=== PATIENT | male | born 1945 | race Caucasian/White ===

== ENCOUNTER 2023-08-20 14:57 | Outpatient (RCR) | payer MEDICARE, SELFPAY ==
--- NOTE | 2023-08-20 16:04 | PT.OPEX ---
[facility] Eval Start: 08/20/23 12:59 Freq: Status: Active Protocol: Document 08/20/23 15:52 JEET (Rec: 08/20/23 16:03 JEET [id number]) E-signed By Anne Raza, PT Physical Therapy Outpatient Evaluation Insurance Information Recert Due Date 11/14/23 Insurance Name Medicare B Medical Diagnosis Right hip OA Pre-op R MAMADOU DOS: 08/27/23 Treating Diagnosis Right hip pain, limited hip ROM, antalgic gait, muscle weakness Referring MD Unger Subjective Subjective Ashwin reports chronic right hip pain since 2003 that impacts his ability to walk and stand for long period of time or stand following sitting for an extended period of time. Previously had L MAMADOU in 2011 ( anterolateral approach). Currently not ambulating with AD however significantly altered gait and balance d/t pain. No falls to report. Son lives with him in a multilevel home. Patients bedroom is on main level and laundry in the basement however son is able to help with this initially. He has 2 steps to enter the house. No railings however step is appropriate for a 2WW according to patient. 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 Standing for 5 hours at a time. Plans to take 1-2 weeks off from work. He plans to follow up with OP PT in [place] however has not scheduled this yet. PMH: L TKA 2011, HTN, smoker, numbness bottom of both feet X-rays show end-stage bone-on- bone right hip degenerative change with deformity of the femoral head. Osteophytic spurring is significant. Sclerosis is significant. No visible cysts. Calcification within the femoral arteries. 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 Session focused on education of anterior hip precautions, post-operative fall prevention precautions, transfers, gait with AD, stair negotiation, post-operative exercises. He is able to verbalize precautions and demonstrated independence with exercises, gait and stairs. He is appropriate to proceed with surgery at this time. Primary Functional Limitations Walking, standing, sitting, bending, squatting Plan of Care Rehabilitation Potential Good Physical Therapy Goals By end of session today, patient will...All goals MET Demonstrate appropriate gait pattern with FWW to utilize post surgery for optimal safety when ambulating Demonstrate ability to negotiate stairs using appropriate stair pattern post surgery for optimal safety when at home and in community Verbalize understanding of most appropriate home set up including needed equipment for optimal safety and recovery post surgery Be independent in HEP program to show ability to perform appropriate exercises post surgery Treatment Plan/Direct Interventions Gait Training,Ice/Cold/ Vasopneumatic,Joint Mobilization,Manual Therapy, Neuromuscular Re-ed,Self-Care/ Home Management,Therapeutic Activities,Therapeutic Exercises Frequency/Duration Pre-op appointment only Patient Will Be Discharged From Therapy Completion of LTG(s), Independent w/HEP, Independently Progressing Evaluation Billing Untimed Code Treatment Minutes 25 Complexity Low Certification Information Provider Signature Required Yes Provider Signature Shows Agreement With POC & Medical Necessity Physician NPI Number Write NPI# Here Physician Comment/Change : Physician Signature & Date Requested Please Sign/Date Here
== END 2023-12-18 23:59 | disposition home or self-care (01) ==
PROVIDERS: PCP Family Medicine; Visit Provider Orthopaedic Surgery
DX: M16.11 Unilateral primary osteoarthritis, right hip (principal); Z96.641 Presence of right artificial hip joint; M25.551 Pain in right hip; Z74.09 Other reduced mobility; R26.9 Unspecified abnormalities of gait and mobility; M62.81 Muscle weakness (generalized); Z51.89 Encounter for other specified aftercare
CPT/HCPCS: 97161; 97535

== ENCOUNTER 2023-08-27 07:26 | Day surgery (SDC) | payer MEDICARE, SELFPAY ==
--- NOTE | 2023-08-20 16:33 | PC.SOCIAL ---
Social work : At request of Orthopedic Clinic nurse, called pt's son, Jf, to answer questions about transitional care stay after surgery. Son states he is no longer interested in this because his father is refusing this plan. Shared with son that pt would not meet Medicare criteria for insurance coverage if things went well during and after surgery and that private pay costs at a transitional care facility are around $650/day. Son was appreciative of information provided and is aware of how to reach social sciences research scientist if he has additional questions about discharge plan or community resources.
[2023-08-27] VITALS (30 sets, daily range): BP systolic 107–201; BP diastolic 70–125; PULSE 50–97; RESP 12–20; TEMP 35.8–36.8; O2SAT 94–100; BMI 26.4; BMI 24.0
[2023-08-27] MEDS: ACETAMINOPHEN 500 MG TABLET 1000 MG PO ×3 (08:00→22:30)
[2023-08-27] MEDS: CELECOXIB 200 MG CAPSULE PO (08:00)
[2023-08-27] MEDS: OXYCODONE (CR) 10 MG TAB.ER.12H PO (08:00)
[2023-08-27] MEDS: LACTATED RINGERS 1000 ML 1,000 ML 100 ML IV ×2 (08:19→11:52)
[2023-08-27] MEDS: SODIUM CHLORIDE 0.9 % (FLUSH) 10 ML SYRINGE IVF (08:19)
[2023-08-27] MEDS: fentaNYL 100 MCG/2 ML inj IVP (09:56)
[2023-08-27] MEDS: MIDAZOLAM HCL 1 MG/ML inj IVP (09:56)
--- NOTE | 2023-08-27 09:57 | SUR.PREOP ---
TIME?OUT:955? PT/RN/MDA?VERIFICATION?OF?SURGICAL?SITE,?PROCEDURE,?AND?CONSENT OBTAINED?PRIOR?TO?INVASIVE?PROCEDURE.
--- NOTE | 2023-08-27 10:00 | CRLHL7_ITS ---
For Patients: As a result of the Cures Act, medical imaging exams and procedure reports are released immediately into your electronic medical record. You may view this report before your referring provider. If you have questions, please contact your health care provider. Indication: Hip replacement surgery Technique: AP hip fluoroscopic images. Fluoroscopy time 59.6 seconds. Findings/Impression: Hardware from a right total hip arthroplasty is in satisfactory position. Dictated by Ammon Rivera MD @ 08/28/2023 7:28:20 AM (Electronically Signed)
--- NOTE | 2023-08-27 10:21 | P.NB_ITS ---
Nerve Block Nerve Block Time Seen by Provider: 10:02 Date Seen: 08/27/23 Type of block requested by surgeon for post-operative analgesia: OSCAR/LFCN Side: right Time out performed: Yes Verification of patient name: Yes Verification of date of : Yes Site marking: site marked Name of person performing procedure: Reece Continuous monitoring Was continuous monitoring of O2 sat, B/P, nurse monitoring, recorded every 15 minutes?: Yes Procedure Checklist: sterile prep, needles and gloves Ultrasound guided. Images saved: Yes Medications given in 5ml increments after negative aspiration: Ropivicaine %: 0.5 mL: 30 Needle gauge: 20 Decadron (mg): 10 Precedex (mcg): 25 Patient tolerated procedure well: Yes Additional comments: Needle noted below psoas tendon needle noted adjacent to LFCN Block Charges Block Charge (with Pro Fee): Other Periph Nerve Block Use of Ultrasound Machine for Block: Yes- US Guidance/pain block
--- NOTE | 2023-08-27 10:22 | W.ANESCHARGE ---
Anesthesia Charges Start Date/Time Anesthesia Start Date: 08/27/23 Anesthesia Start Time: 10:50 Stop Date/Time Anesthesia Stop Date: 08/27/23 Anesthesia Stop Time: 13:31 Summary Extremes of Age - Over 70 or under 1: MDA
[2023-08-27] MEDS: CEFAZOLIN 2 GM INJ IVP (10:55)
[2023-08-27] MEDS: TRANEXAMIC ACID 100 MG/ML INJ 1000 MG IV (10:55)
--- NOTE | 2023-08-27 12:44 | CRLHL7_ITS ---
For Patients: As a result of the Cures Act, medical imaging exams and procedure reports are released immediately into your electronic medical record. You may view this report before your referring provider. If you have questions, please contact your health care provider. Indication: TOTAL RT HIP REPLACEMENT POST OP Technique: AP hip centered pelvis and lateral view right hip Findings/Impression: Hardware from a right total hip arthroplasty is in satisfactory position. Bone alignment is normal. No sign of acute fracture. Postop changes are within normal limits. Dictated by Ammon Rivera MD @ 08/28/2023 7:27:44 AM (Electronically Signed)
--- NOTE | 2023-08-27 12:47 | P.ORPRC_ITS ---
Procedure Note Date of procedure: 08/27/23 Procedure: PREOPERATIVE DIAGNOSIS: Right hip osteoarthritis POSTOPERATIVE DIAGNOSIS: Right hip osteoarthritis NAME OF OPERATION: Right total hip arthroplasty SURGEON: Saurav Unger MD COLD STRIP FEEDER: Matilde Pedraza PA-C, ROSS Rodríguez IMPLANTS: 1. [employer] [place] # 58 sector ingrowth cup 2. 36 x 58 +4 neutral polyethylene 3. Actis # 9 standard collared ingrowth stem 4. 36 + -2 cobalt chrome femoral head ANESTHESIA: General ESTIMATED BLOOD LOSS: 400 cc COMPLICATIONS: None SPECIMENS: None DRAINS: None PREOPERATIVE ANTIBIOTICS: Ancef 2 grams INDICATIONS: The patient is a 78-year-old with a longstanding history of severe, unrelenting right hip pain secondary to end-stage right hip osteoarthritis. Despite appropriate nonoperative management, including activity modification, use of an assist device, anti-inflammatories, [id number] pain medication, physical therapy and injections, they continue to have pain and disability. Operative intervention was offered. The risks, benefits and expected outcomes were discussed in detail. These included but were not limited to: Infection, bleeding, injury to blood vessel or nerve, venous thromboembolism. All questions were answered to their satisfaction. Use of an anatomic pathology assistant was necessary throughout the case for patient positioning and safety, soft tissue retraction and closure. PROCEDURE: The patient was placed supine on the [place] table. General anesthesia was administered. The anatomic pathology assistant made sure the patient was properly positioned. The right hip was prepped and draped in the usual sterile fashion. The image intensifier was brought in for a perfect AP pelvis and a perfect double tear drop AP view of each hip which were used for intraoperative templating with our fluoroscopic guide. An oblique incision was made 3 cm distal and 3 cm lateral to the anterior superior iliac spine. The anatomic pathology assistant retracted the soft tissues to protect them. Subcutaneous dissection was taken with electrocautery to the superficial fascia. The fascia was divided in line with the incision. Blunt dissection was carried medially to the tensor fascia hardik and sartorius interval. Deep dissection was carried with electrocautery. The circumflex vessels were cauterized and divided. The capsule was exposed and then divided in a T- fashion, tagged with #1 Ethibond sutures. Retractors were placed in the joint, held by the anatomic pathology assistant. The corkscrew was placed in the femoral head. The neck cut was made in the subcapital region. We made a second neck cut more distal. The napkin ring of bone was removed. The femoral head was removed intact. Acetabular retractors were placed, held by the anatomic pathology assistant. The labrum was sharply debrided. The capsule was released. The 43 mm reamer was used to the true medial wall. We then enlarged in 2 mm increments using the image intensifier for our reamer placement. We impacted the cup which had excellent purchase. For supplemental fixation we placed a 6.5 mm x 45 mm screw in the superior aspect of the cup, into the ilium. This had excellent purchase. Its placement was confirmed with the image intensifier in multiple planes. We placed the polyethylene. Attention was then turned to the proximal femur. The limb was placed in 140 degrees of external rotation, maximum extension and adduction. A significant amount of time was spent releasing the capsule to allow us to deliver the femur into the wound and complete the femoral side safely. Retractors were held by the anatomic pathology assistant throughout the femoral preparation. The jukebox checker and canal finder were used. Broaches were used to a stable size. The calcar reamer was used. Trial components were placed. The hip was reduced and was found to be stable with appropriate soft tissue tension. Length and offset had been nicely restored using the image intensifier and our fluoroscopic guide. Trial components were removed. The stem was impacted. We placed the femoral head. Again, the hip was reduced and was found to be stable with appropriate soft tissue tension. Length and offset had been nicely restored. The anatomic pathology assistant did a three minute dilute Betadine solution soak. The anatomic pathology assistant irrigated the wound with 3 liters of normal saline via pulse lavage. The anatomic pathology assistant repaired the anterior capsule with a #1 Vicryl and our previously placed Ethibond sutures. The anatomic pathology assistant closed the fascia over the tensor fascia hardik with a #1 PDO Stratafix, subcutaneous tissues with 2-0 Vicryl, skin with a running 3-0 Stratafix and glue. A dry dressing was applied by the anatomic pathology assistant. Sponge and needle counts were correct x 2. The patient tolerated the procedure well; there were no apparent complications. They were awakened and extubated in the operating room, sent to the Post-Anesthesia Care Unit in satisfactory condition. PLAN: 1. The patient will be mobilized with physical therapy, weight-bearing as tolerates 2. Xarelto x 5 days then aspirin x 30 days will be used for DVT prophylaxis 3. The patient will be discharged once medically appropriate
--- NOTE | 2023-08-27 13:34 | W.ANESCHARGE ---
Anesthesia Charges Start Date/Time Anesthesia Start Date: 08/27/23 Anesthesia Start Time: 10:50 Stop Date/Time Anesthesia Stop Date: 08/27/23 Anesthesia Stop Time: 13:31
[2023-08-27] MEDS: fentaNYL 100 MCG/2 ML inj 50 MCG IVP (13:51)
--- NOTE | 2023-08-27 14:28 | SUR.PHASEI ---
patient met discharge criteria per anesthesia
--- NOTE | 2023-08-27 15:45 | P.IMCN_ITS ---
Date of Consult Patient: Donal Patient Consult date: 08/27/23 Requesting Physician: Orthopedics Primary Care Provider: Eliezer Leroy MD Consult Narrative Narrative: Bernardo Potts is a 78 year old male seen in consultation for medical problems following right hip arthroplasty. Procedure was performed by Dr. Unger today. There were no complications. Estimated blood loss of 400 mL. He requests consultation for management of medical problems. Postoperatively patient reports feeling fine. He is not having significant pain. Note chills, did dyspnea, nausea. Preoperatively he reports feeling well with no recent illness or injury. Preop physical did not identify any significant perioperative concerns. Previous surgical history is only a left hip arthroplasty 10 years ago without complications. Review of Systems Narrative: Patient reports doing well. PFSH PFS Medical History (Updated 08/27/23 @ 15:55 by Eran Yeung MD) Smoking ?F17.200 - Nicotine dependence, unspecified, uncomplicated (ICD-10) COPD (chronic obstructive pulmonary disease) ?J44.9 - Chronic obstructive pulmonary disease, unspecified (ICD-10) Hypercholesteremia ?E78.00 - Pure hypercholesterolemia, unspecified (ICD-10) Depression ?F32.A - Depression, unspecified (ICD-10) Hypertension ?I10 - Essential (primary) hypertension (ICD-10) Surgical History (Updated 08/27/23 @ 15:55 by Eran Yeung MD) S/P total right hip arthroplasty ?Z96.641 - Presence of right artificial hip joint (ICD-10) History of left hip replacement ?Z96.642 - Presence of left artificial hip joint (ICD-10) Family History (Updated 08/27/23 @ 15:50 by Eran Yeung MD) Mother Heart disease Father Stroke Social History (Updated 08/27/23 @ 15:52 by Eran Yeung MD) Narrative: He lives with his son in [place]. He lives in a home that does have a few steps. He smokes almost a pack cigarettes a day for over 40 years. He rarely drinks alcohol. What is your current living situation?: I presently have a place to live Problems where you live: no known problems In the past 12 months, utilities in danger of being shut off: no In past 12 months, lack of transportation kept you from medical appts, meetings, work, or getting things needed for daily living: no In the past 12 mos, have been you worried that your food would run out before you had money to buy more?: never true In the past 12 mos, the food you bought just didn't last and you didn't have money to buy more?: never true Highest level of school completed/degree received: 10th grade Smoking Status: Current every day smoker What tobacco products do you use: cigarettes Smoking packs per day: 1 Smoking cigarettes per day: 20.0 Years smoked: 40 Smoking pack-years: 40.00 Do you use any of these nicotine containing products: None Second hand tobacco smoke exposure: Yes How often do you have a drink containing alcohol: monthly or less Alcohol type: beer How many standard drinks containing alcohol do you have on a typical day: 1 or 2 How often do you have six or more drinks on one occasion: Never AUDIT-C Alcohol total score: 1 Non-prescribed substance use: denies use Caffeine: Yes (coffee/pop) How often does anyone, including family, friends and others, physically hurt you : never How often does anyone, including family, friends and others, insult or talk down to you: never How often does anyone, including family, friends and others, threaten you with harm: never How often does anyone, including family, friends and others, scream or curse at you: never service: No Meds Home Medications and Allergies Home Medications ?Medication ?Instructions ?Recorded ?Confirmed ?Type metoprolol succinate 50 mg 50 mg PO DAILY 07/03/23 07/03/23 History tablet,extended release 24 hr simvastatin 40 mg tablet 40 mg PO QHS 08/20/23 History acetaminophen 325 mg capsule 650 mg PO Q12H PRN 08/26/23 08/26/23 History Allergies Allergy/AdvReac Type Severity Reaction Status Date / Time No Known Drug Allergies Allergy Verified 07/03/23 15:19 Exam Narrative: Exam Narrative: He is alert and appears in no distress. Eyes normal. Oropharynx edentulous. Neck is supple without mass or adenopathy. Respirations are clear to auscultation with diminished breath sounds throughout. No wheezing. Cardiovascular: S1, S2, regular rate and rhythm. Abdomen: Bowel sounds active. Abdomen is soft without tenderness or mass. External genitalia normal. Right hip is without erythema or significant drainage on the dressing. Distally he has intact pulses and intact strength in his feet and ankles. Const: Vital Signs, click to edit/add: Vital Signs - 24 hr 08/27/23 07:48 08/27/23 09:58 08/27/23 10:00 Temperature 98.3 F Pulse Rate 60 61 60 Respiratory Rate 16 16 16 Blood Pressure 143/81 H 138/81 108/78 Pulse Oximetry 97 99 98 Oxygen Delivery Me thod Room Air Nasal Cannula Nasal Cannula Oxygen Flow Rate 2 2 08/27/23 10:05 08/27/23 10:15 08/27/23 10:20 Temperature Pulse Rate 63 59 L 58 L Respiratory Rate 16 16 16 Blood Pressure 109/73 116/71 107/70 Pulse Oximetry 94 94 97 Oxygen Delivery Me thod Nasal Cannula Nasal Cannula Nasal Cannula Oxygen Flow Rate 2 2 2 08/27/23 13:28 08/27/23 13:30 08/27/23 13:35 Temperature 97.6 F 97.6 F 97.6 F Pulse Rate 54 L 54 L 50 L Respiratory Rate 14 14 14 Blood Pressure 167/97 H 167/97 H 182/99 H Pulse Oximetry 100 99 97 Oxygen Delivery Me thod OxyMask OxyMask OxyMask Oxygen Flow Rate 6 6 6 08/27/23 13:40 08/27/23 13:45 08/27/23 13:50 Temperature 97.6 F 97.6 F 97.6 F Pulse Rate 56 L 56 L 56 L Respiratory Rate 14 12 13 Blood Pressure 170/87 H 111/88 115/85 Pulse Oximetry 97 95 95 Oxygen Delivery Me thod Room Air Room Air Room Air Oxygen Flow Rate 08/27/23 13:55 08/27/23 14:00 08/27/23 14:05 Temperature 97.3 F L 97.3 F L 97.3 F L Pulse Rate 56 L 65 58 L Respiratory Rate 14 14 15 Blood Pressure 171/123 H 157/115 H 201/125 H Pulse Oximetry 95 95 95 Oxygen Delivery Me thod Room Air Room Air Room Air Oxygen Flow Rate 08/27/23 14:10 Temperature 97.3 F L Pulse Rate 64 Respiratory Rate 14 Blood Pressure 162/114 H Pulse Oximetry 95 Oxygen Delivery Me thod Room Air Oxygen Flow Rate Documenting provider has reviewed patient's vital signs: yes Assessment and Plan Assessment and plan (1) S/P total right hip arthroplasty: Problem comment: Dr. Unger, 08/27/2023, no complications, Status: Acute (2) Smoking: Problem comment: Recommend abstinence. Nicotine patch offered but currently declined. Status: Acute Plan Patient is admitted to the hospital for postoperative care following hip arthroplasty including pain management and therapy. Manage medical problems as well. Anticipate discharge to home tomorrow if doing well. Total Time Spent Total Time Spent: 35 minutes
[2023-08-27] MEDS: LACTATED RINGERS 1000 ML 1,000 ML 75 ML IV (16:23)
[2023-08-27] MEDS: CEFAZOLIN 2 GM in 0.9 % SODIUM CHLORIDE Mini-bag 100 ML IVPB (18:52)
[2023-08-27] MEDS: OXYCODONE 5 MG TABLET PO (19:04)
[2023-08-27] MEDS: SIMVASTATIN 40 MG TABLET PO (22:30)
[2023-08-27] MEDS: SENNOSIDES 1 TAB TABLET 2 TAB PO (22:30)
[2023-08-28 03:00] VITALS: BP 118/70; PULSE 83; TEMP 36.7; O2SAT 94
[2023-08-28] MEDS: CEFAZOLIN 2 GM in 0.9 % SODIUM CHLORIDE Mini-bag 100 ML IVPB (03:12)
[2023-08-28] MEDS: ACETAMINOPHEN 500 MG TABLET 1000 MG PO ×2 (03:36→10:41)
[2023-08-28] MEDS: OXYCODONE 5 MG TABLET PO ×2 (03:37→08:09)
[2023-08-28 07:25] LABS: Potassium* 4.3 mmol/L (3.6-5.1); Sodium* 136 mmol/L (135-149)
[2023-08-28 07:28] LABS: Creatinine* 0.7 mg/dL (0.5-1.5); Estimated Glomerular Filt Rate 95 ml/min
[2023-08-28 07:29] LABS: Blood Urea Nitrogen* 20 mg/dL (7-30)
[2023-08-28 07:40] VITALS: BP 127/82; PULSE 81; RESP 18; TEMP 37.1; O2SAT 93
[2023-08-28 07:53] VITALS: RESP 18; O2SAT 93
--- NOTE | 2023-08-28 08:01 | PM.ORPN ---
Subjective Subjective Time Seen by Provider: 07:15 Date Seen: 08/28/23 Principal diagnosis: Status post right hip replacement Interval history: Ashwin is comfortable this morning. He has been up to the restroom, ambulated about his room. He will be discharging today to home. He is looking forward to getting back to work. Ortho Exam Narrative Exam Narrative: Alert and oriented x3. Patient is in no acute distress. Converses without labored breathing. Hearing is grossly intact. Ambulates with a walker. Examination of the right lower extremity shows the dressing is intact. No erythema or warmth or sign of infection. Minimal edema. He is able to flex his knee about 10? in his bed this morning. He stated he was able to do this easier yesterday. With quad strength testing 5/5. Tingling and some numbness in his feet, however he states this was there previously. Otherwise CMS intact right lower extremity. Calves are soft and nontender. Const Vital Signs, click to edit/add: Vital Signs - 24 hr 08/27/23 09:58 08/27/23 10:00 08/27/23 10:05 Temperature Pulse Rate 61 60 63 Pulse Rate [Right Pulse Oximeter] Respiratory Rate 16 16 16 Blood Pressure 138/81 108/78 109/73 Blood Pressure [Left Arm] Pulse Oximetry 99 98 94 Oxygen Delivery Method Nasal Cannula Nasal Cannula Nasal Cannula Oxygen Flow Rate 2 2 2 08/27/23 10:15 08/27/23 10:20 08/27/23 13:28 Temperature 97.6 F Pulse Rate 59 L 58 L 54 L Pulse Rate [Right Pulse Oximeter] Respiratory Rate 16 16 14 Blood Pressure 116/71 107/70 167/97 H Blood Pressure [Left Arm] Pulse Oximetry 94 97 100 Oxygen Delivery Method Nasal Cannula Nasal Cannula OxyMask Oxygen Flow Rate 2 2 6 08/27/23 13:30 08/27/23 13:35 08/27/23 13:40 Temperature 97.6 F 97.6 F 97.6 F Pulse Rate 54 L 50 L 56 L Pulse Rate [Right Pulse Oximeter] Respiratory Rate 14 14 14 Blood Pressure 167/97 H 182/99 H 170/87 H Blood Pressure [Left Arm] Pulse Oximetry 99 97 97 Oxygen Delivery Method OxyMask OxyMask Room Air Oxygen Flow Rate 6 6 08/27/23 13:45 08/27/23 13:50 08/27/23 13:55 Temperature 97.6 F 97.6 F 97.3 F L Pulse Rate 56 L 56 L 56 L Pulse Rate [Right Pulse Oximeter] Respiratory Rate 12 13 14 Blood Pressure 111/88 115/85 171/123 H Blood Pressure [Left Arm] Pulse Oximetry 95 95 95 Oxygen Delivery Method Room Air Room Air Room Air Oxygen Flow Rate 08/27/23 14:00 08/27/23 14:05 08/27/23 14:10 Temperature 97.3 F L 97.3 F L 97.3 F L Pulse Rate 65 58 L 64 Pulse Rate [Right Pulse Oximeter] Respiratory Rate 14 15 14 Blood Pressure 157/115 H 201/125 H 162/114 H Blood Pressure [Left Arm] Pulse Oximetry 95 95 95 Oxygen Delivery Method Room Air Room Air Room Air Oxygen Flow Rate 08/27/23 14:18 08/27/23 14:30 08/27/23 14:37 Temperature 96.9 F L 96.5 F L Pulse Rate 56 L 62 Pulse Rate [Right Pulse Oximeter] Respiratory Rate 20 18 Blood Pressure 139/108 H 149/94 H Blood Pressure [Left Arm] Pulse Oximetry 96 96 96 Oxygen Delivery Method Room Air Room Air Room Air Oxygen Flow Rate 08/27/23 14:45 08/27/23 15:00 08/27/23 15:00 Temperature 96.9 F L Pulse Rate 66 Pulse Rate [Right Pulse Oximeter] Respiratory Rate 18 14 16 Blood Pressure 164/100 H Blood Pressure [Left Arm] Pulse Oximetry 97 96 Oxygen Delivery Method Room Air Room Air Oxygen Flow Rate 08/27/23 15:00 08/27/23 15:15 08/27/23 15:45 Temperature 97.7 F 97.3 F L Pulse Rate 64 75 76 Pulse Rate [Right Pulse Oximeter] Respiratory Rate 20 20 18 Blood Pressure 160/88 H 158/88 H 136/86 Blood Pressure [Left Arm] Pulse Oximetry 97 96 97 Oxygen Delivery Method Room Air Room Air Room Air Oxygen Flow Rate 08/27/23 16:15 08/27/23 17:00 08/27/23 18:00 Temperature 97.7 F 97.8 F Pulse Rate 79 61 97 Pulse Rate [Right Pulse Oximeter] Respiratory Rate 18 18 16 Blood Pressure 142/102 H 132/85 135/70 Blood Pressure [Left Arm] Pulse Oximetry 96 97 97 Oxygen Delivery Method Room Air Room Air Room Air Oxygen Flow Rate 08/27/23 19:00 08/27/23 22:33 08/27/23 22:35 Temperature 98.1 F 97.5 F L Pulse Rate 97 Pulse Rate [Right Pulse Oximeter] 67 Respiratory Rate 16 18 18 Blood Pressure 113/84 Blood Pressure [Left Arm] 129/77 Pulse Oximetry 96 97 97 Oxygen Delivery Method Room Air Room Air Room Air Oxygen Flow Rate 08/28/23 03:00 08/28/23 07:40 08/28/23 07:53 Temperature 98.0 F 98.7 F Pulse Rate Pulse Rate [Right Pulse Oximeter] 83 81 Respiratory Rate 18 18 Blood Pressure Blood Pressure [Left Arm] 118/70 127/82 Pulse Oximetry 94 93 93 Oxygen Delivery Method Room Air Room Air Room Air Oxygen Flow Rate 0 Assessment and Plan Assessment and plan (1) S/P total right hip arthroplasty: Problem details: Dr. Unger, 08/27/2023 Status: Acute Assessment and Plan: Plan for discharge is today, and when he meets discharge criteria. DVT prophylaxis upon discharge Xarelto 10 mg daily for 5 days, then aspirin 81 mg b.i.d. for 30 days. Remove dressing 1 week. Observe wound and phone Orthopedics with any questions or concerns Use Ice on operative hip unrestricted. Return to clinic in 1 week with PA for a wound check Return to clinic in 6 weeks with surgeon Minimize narcotic use. Wean off and discontinue soon as possible. Activities as tolerated. No strenuous activity. Attend outpt PT. He states he is unsure if he has had outpatient physical therapy appointments scheduled. I have asked Anne, my nurse to check into this and speak with Ashwin.
[2023-08-28 08:03] LABS: Basophils Percent Auto 0.1 % (0.0-3.0); Hematocrit 33.9 % (37.0-53.0); Hemoglobin* 10.9 gm/dL (13.5-17.5); Immature Granulocytes Pct Auto 0.4 %; Lymphocytes Percent Auto 8.6 % (20-44); Mean Corpuscular HGB Conc 32 gm/dL (32-36); Mean Corpuscular Hemoglobin 31 pg (26-34); Mean Corpuscular Volume 97 fL (80-100); Neutrophils Percent Auto 79.9 % (42.0-72.0); Platelet Count* 141 K/uL (140-440); RDW Coefficient of Variation % 14.8 % (11.5-15.5); White Blood Count* 13.31 K/uL (4.50-11.00)
[2023-08-28] MEDS: SENNOSIDES 1 TAB TABLET 2 TAB PO (08:08)
[2023-08-28 08:09] LABS: Slide Review Reflex No
[2023-08-28] MEDS: METOPROLOL SUCCINATE (XL) 50 MG TAB PO (08:09)
[2023-08-28] MEDS: RIVAROXABAN 10 MG TABLET PO (08:09)
--- NOTE | 2023-08-28 08:12 | PC.NURSE ---
Patient pleasant, alert and oriented. Transferred and ambulated with gait belt, walker and assist of one. Given PRN Oxycodone for pain rated 8/10. Dressing C,D&I. ?
[2023-08-28 10:33] VITALS: BP 112/70; PULSE 77; RESP 16; TEMP 36.9; O2SAT 94
--- NOTE | 2023-08-28 11:24 | PC.NURSE ---
Pt alert and oriented. Pt had complaints of pain ranging from 8-10; see EMAR for intervention.VSS. Pt up with SBA with walker and gait belt. Pt's IV removed; catheter intact. Pt's son at bedside. Pt discharging home with son.
--- NOTE | 2023-08-28 11:27 | PC.NURSE ---
Pt's dressing is dry and intact.
== END 2023-08-28 11:37 | disposition home or self-care (01) ==
LOC: OR 07:27 → MEDSURG 07:29
PROVIDERS: PCP Family Medicine; Visit Provider Orthopaedic Surgery
PROC: (CPT 27130; principal; 2023-08-27 10:00)
DX: M16.11 Unilateral primary osteoarthritis, right hip (principal); G89.18 Other acute postprocedural pain; J44.9 Chronic obstructive pulmonary disease, unspecified; I10 Essential (primary) hypertension; F17.210 Nicotine dependence, cigarettes, uncomplicated; E78.2 Mixed hyperlipidemia
CPT/HCPCS: 27130; 01214; 36415; 64450; 73501; 76000; 76942; 82565; 84132; 84295; 84520; 85025; 86850; 86900; 86901; 97116; 97161; 97166; 97530; 97535; 99100; A9270; C1713; C1776; J0330; J0690; J1100; J2250; J2405; J2704; J2710; J2795; J3010; J3475; J3490; J7120

== ENCOUNTER 2023-10-18 11:15 | Outpatient (RCR) | payer MEDICARE, SELFPAY ==
--- NOTE | 2023-09-05 13:28 | PT.OPEX ---
PT [place] Outpatient Eval PT [facility] Outpatient Eval Start: 09/05/23 09:19 Freq: Status: Active Protocol: Document 09/05/23 13:08 SALTY (Rec: 09/05/23 13:23 SALTY [id number]) E-signed By Rylee Mason DPT Physical Therapy Outpatient Evaluation Insurance Information Recert Due Date 12/04/23 Insurance Name Medicare B Medical Diagnosis s/p R MAMADOU anterior approach 08/27/23 Treating Diagnosis s/p R MAMADOU anterior approach 08/27/23 with R hip pain, impaired R hip ROM, impaired R hip/LE mobility/strength, impaired transfers, impaired gait, limited tolerance for extended standing/walking Subjective Subjective Patient reports chronic R hip pain leading up to R MAMADOU . He reports d/c home the next day with his son assisting at home as needed after surgery. Patient has been using a 4ww to get around , feels this is going ok. Reports doing his HEP 3x/day with son assist as needed. He is unable to lift R LE for transfers or exercises - using UEs or a strap to help lift his leg. Pain range 7-9/10. He is using pain meds and tylenol regularly. Also icing regularly. He works 5 hours a week at [employer] in [place], has been off since his surgery. Reports hx of L MAMADOU about 17 years ago, posterior approach for L hip. Date of Surgery (If applicable) 08/27/23 Current Work Status [employer] Occupation [employer] 5 hours a week Precautions Treatment Precautions/Contraindications hx L MAMADOU about 17 years ago, HTN Assessment Assessment/Impression Patient is a 78 year old male s/p R MAMADOU anterior approach 08/27/23 with R hip pain, impaired R hip ROM, impaired R hip/LE mobility/strength, impaired transfers, impaired gait, limited tolerance for extended standing/walking. Pain rated 7-9/10. Patient is using pain meds, tylenol regularly. Patient and son live together and son has been helping patient with meds, exercises, cares as needed after surgery. Patient is doing his HEP 3x/ day with son assist. He is amb with 4ww. Gait is slow, stiff legged, limping, antalgic. Patient is lacking bilateral hip/knee flex, R>L, and bilateral hip ext, R>L, with gait. He is unable to lift R LE due to pain, R hip flexor weakness. He is using a leg garbage collector driver strap or UEs to help lift, move R LE for transfers. Reviewed HEP. Able to progress with some standing exercises this session. Patient challenged with full WB on R LE due to pain/weakness. Instructed to work on hip/knee flex with gait to improve his ambulation , keep 4ww closer. Patient will continue with his HEP and recheck in PT next week. Patient would benefit from skilled PT for pain/sx management, improved R hip ROM , improved R hip/LE mobility/ strength, improved transfers, gait/balance training, and establishment of HEP. Plan of Care Rehabilitation Potential Good Physical Therapy Goals 1. Decrease R hip/thigh pain to less than/equal to 3/10 with daily activities and with the progression of PT activities over the next 4-6 weeks. 2. Improve R hip ROM over the next 6-8 weeks for improved gait mechanics, return to transfers with ease, and return to reciprocal stair negotiation. 3. Improve R hip/glut/LE/core strength over the next 8-10 weeks for return to transfers with ease, normal gait without AD, and extended standing/walking without flare up of pain. 4. Patient will be I with HEP within 10 weeks for progression toward above goals, ongoing self management of pain/sx, ongoing self improvements in R hip ROM/mobility/strength, and for return to daily and work activities, including standing/walking without flare up of pain. Coordination/Communication With Referral Source Treatment Plan/Direct Interventions Gait Training,Manual Therapy, Therapeutic Exercises Frequency/Duration 1x/week Patient Will Be Discharged From Therapy Completion of LTG(s),Skills Plateau,Independent w/HEP, Independently Progressing Evaluation Billing Untimed Code Treatment Minutes 20 Complexity Moderate Certification Information Initial Certification Date 09/05/23 Ending Certification Date 12/04/23 Provider Signature Required Yes Provider Signature Shows Agreement With POC & Medical Necessity Physician NPI Number Write NPI# Here Physician Comment/Change : Physician Signature & Date Requested Please Sign/Date Here
== END 2024-02-15 23:59 | disposition home or self-care (01) ==
PROVIDERS: PCP Family Medicine; Visit Provider Orthopaedic Surgery
DX: M16.11 Unilateral primary osteoarthritis, right hip (principal); Z96.641 Presence of right artificial hip joint; M25.551 Pain in right hip; Z74.09 Other reduced mobility; R26.9 Unspecified abnormalities of gait and mobility; Z51.89 Encounter for other specified aftercare
CPT/HCPCS: 97110; 97116; 97162